=== PATIENT | female | born 1935 | race Caucasian/White ===

== ENCOUNTER 2016-08-15 03:43 | Emergency (ER) | payer BC, MEDICARE ==
[~2016-08-15] VITALS: Ht 152.4 cm; Wt 85.0 kg
[2016-08-15 03:47] VITALS: BP 226/98; PULSE 93; RESP 18; TEMP 98; O2SAT 100
[2016-08-15] MEDS ORDERED: HYDROmorphone HCL PF 1 MG/ML VIAL ONE (03:49)
[2016-08-15] MEDS ORDERED: ceFAZolin 2 GM PREMIX 50 ML ONE (03:51)
[2016-08-15] MEDS ORDERED: GENTAMICIN 80 MG PREMIX 100 ML ONE (03:51)
[2016-08-15 03:55] VITALS: BP 191/86; PULSE 93; RESP 18; O2SAT 98
[2016-08-15] MEDS ORDERED: HYDROmorphone HCL PF 1 MG/ML VIAL IV PUSH ONE (04:00)
[2016-08-15] MEDS ORDERED: SODIUM CHLORID 0.9% 500 ML INJ 500 ML IV ONE (04:00)
[2016-08-15] MEDS ORDERED: GENTAMICIN 80 MG PREMIX 100 ML IV ONE (04:00)
[2016-08-15] MEDS ORDERED: ceFAZolin 2 GM PREMIX 50 ML IV ONE (04:00)
[2016-08-15] MEDS ORDERED: MIRA50TA PO (04:04)
[2016-08-15] MEDS ORDERED: XARE10TA PO (04:04)
[2016-08-15] MEDS ORDERED: BACT800T5 PO (04:04)
[2016-08-15] MEDS ORDERED: IRBE300T13 PO (04:04)
[2016-08-15] MEDS ORDERED: HYDR-3583 PO (04:04)
[2016-08-15] MEDS ORDERED: ATOR10TA15 PO (04:04)
[2016-08-15] MEDS ORDERED: ADVA250A INH (04:04)
[2016-08-15] MEDS ORDERED: HYDR-3535 PO (04:04)
[2016-08-15] MEDS ORDERED: MULT-231 (04:04)
[2016-08-15] MEDS ORDERED: NITR1SUB3 SL (04:04)
[2016-08-15] MEDS ORDERED: CELE1CAP8 PO (04:04)
[2016-08-15] MEDS ORDERED: SERT25TA83 PO (04:04)
[2016-08-15] MEDS ORDERED: CALTCHW5 PO (04:04)
[2016-08-15] MEDS ORDERED: FEXO1TAB97 PO (04:04)
[2016-08-15] MEDS ORDERED: FLUT1INH INH (04:04)
[2016-08-15] MEDS ORDERED: DOXY1CAP74 PO ×2 (04:04)
[2016-08-15 04:13] LABS: AUTOMATED NEUTROPHIL # 5.1 TH/MM3 (1.8-7.7); BASOPHIL # 0.1 TH/MM3 (0-0.2); BASOPHIL % 0.6 % (0.0-2.0); EOSINOPHIL # 0.8 TH/MM3 (0-0.4); EOSINOPHIL % 7.3 % (0.0-4.0); HEMATOCRIT 34.1 % (35.0-46.0); HEMO FLAGS DIFF FINAL; LYMPH % 33.5 % (9.0-44.0); LYMPHOCYTE # 3.5 TH/MM3 (1.0-4.8); MEAN CELL VOLUME 82.2 FL (80.0-100.0); MEAN CORPUSCULAR HGB CONC 31.6 % (32.0-36.0); MONO % 9.8 % (0.0-8.0); NEUT % 48.8 % (16.0-70.0); PLATELET COUNT 290 TH/MM3 (150-450); RED BLOOD COUNT 4.16 MIL/MM3 (4.00-5.30); RED CELL DISTRIBUTION WIDTH 15.1 % (11.6-17.2); WHITE BLOOD COUNT 10.4 TH/MM3 (4.0-11.0)
--- NOTE | 2016-08-15 04:26 | PD ---
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 She had an elective right TKA done with Dr. Sanchez at [facility] on July 16. She states a couple weeks ago she felt a pop. She was seen by Dr. Sanchez a couple days ago and said that everything was healing well. Tonight she felt a pop in her knee again, and collapse to the ground. She called the ambulance who noted complete dehiscence of her right knee wound with exposed hardware. History Past Medical History Narrative Medical Sleep apnea COPD Fibromyalgia Borderline diabetes Hypertension Tetanus Vaccination: Unknown Influenza Vaccination: Yes Social History Alcohol Use: Yes (OCCASSIONALLY) Tobacco Use: No Allergies-Medications (Allergen,Severity, Reaction): Coded Allergies: Dilantin (Verified Allergy, Severe, 08/15/16) Morphine (Verified Allergy, Unknown, 08/15/16) Reported Meds & Prescriptions Reported Meds & Active Scripts Active Reported Doxycycline 40 Mg Cap 40 Mg PO BID Doxycycline 40 Mg Cap 40 Mg PO DAILY Women Multivit W-Biotin Gummy (Multivit-Min/Folic Acid/Biotin) 1 Each Tab.chew Nitroglycerin SL (Nitroglycerin) 0.4 Mg Subl 0.4 Mg SL DIRECTED PRN ONE TABLET UNDER THE TONGUE NEEDED FOR CHEST PAIN, MAY REPEAT EVERY FIVE MINUTES FOR A TOTAL OF 3 DOSES OR CALL 911 IF NO RELIEF Hydrocodone-Acetaminophen 10-325 mg Tab 1 Tab PO Q4H PRN Lortab (Hydrocodone-Acetaminophen) 10-325 Mg Tab 1 Tab PO Q4H PRN Citlalli-D 24 Hour Allergy (Fexofenadine-Pseudoephedrine ER 24 HR) 180-240 Judy 1 Tab PO DAILY Caltrate 600+D Chew (Calcium Carbonate-Vitamin D Chew) 600-400 Mg-Unit Chew 1 Tab PO BID Myrbetriq (Mirabegron) 50 Mg Tab 50 Mg PO DAILY Xarelto (Rivaroxaban) 10 Mg Tab 10 Mg PO SUMOTU Celecoxib 200 Mg Cap 200 Mg PO BID Atorvastatin (Atorvastatin Calcium) 10 Mg Tab 10 Mg PO HS Irbesartan-Hydrochlorothiazide 300-12.5 Mg Tab 1 Tab PO DAILY Sertraline (Sertraline HCl) 25 Mg Tab 25 Mg PO BID Bactrim DS (Sulfamethoxazole-Trimethoprim) 800-160 Mg Tab 1 Tab PO BID Breo Ellipta Inh (Fluticasone/Vilanterol) 100-25 Mcg/Act Inh 1 Puff INH BID Use daily at the same time. Advair Diskus Inh (Fluticasone-Salmeterol Inh) 250-50 Mcg/Blist Aer 1 Puff INH DAILY Rinse mouth after use. Review of Systems Except as stated in HPI: all other systems reviewed are Neg Physical Exam Narrative GENERAL: Well-appearing 80 year-old woman, no acute distress. SKIN: Focused skin assessment warm/dry. HEAD: Atraumatic. Normocephalic. NECK: Trachea midline. No JVD. CARDIOVASCULAR: Regular rate and rhythm. No murmur appreciated. RESPIRATORY: No accessory muscle use. Clear to auscultation. Breath sounds equal bilaterally. GASTROINTESTINAL: Abdomen soft, non-tender, nondistended. Hepatic and splenic margins not palpable. MUSCULOSKELETAL: Right leg is held with the knee flexed. The right knee shows complete dehiscence of her previous surgical wound with obvious exposed hardware , all 3 components, with minimal bleeding. NEUROLOGICAL: Awake and alert. No obvious cranial nerve deficits. Motor grossly within normal limits. Normal speech. PSYCHIATRIC: Appropriate mood and affect; insight and judgment normal. Data Data Last Documented VS Vital Signs Date Time Temp Pulse Resp B/P Pulse Ox O2 Delivery O2 Flow Rate FiO2 08/15/16 03:55 93 18 191/86 98 Room Air 08/15/16 03:47 98.0 Orders Hydromorphone Pf Inj (Dilaudid Pf Inj) (08/15/16 03:49) Cefazolin 2 Gm Premix (Ancef 2 Gm Premix (08/15/16 03:51) Gentamicin 80 Mg Premix (Gentamicin 80 M (08/15/16 03:51) Cefazolin 2 Gm Premix (Ancef 2 Gm Premix (08/15/16 04:00) Gentamicin 80 Mg Premix (Gentamicin 80 M (08/15/16 04:00) Hydromorphone Pf Inj (Dilaudid Pf Inj) (08/15/16 04:00) Complete Blood Count With Diff (08/15/16 03:52) Comprehensive Metabolic Panel (08/15/16 03:52) Sodium Chlorid 0.9% 500 Ml Inj (Ns 500 M (08/15/16 04:00) Knee, Ltd (1 Or 2vws) (08/15/16 ) Labs Laboratory Tests Test 08/15/16 04:00 White Blood Count 10.4 TH/MM3 Red Blood Count 4.16 MIL/MM3 Hemoglobin 10.8 GM/DL Hematocrit 34.1 % Mean Corpuscular Volume 82.2 FL Mean Corpuscular Hemoglobin 26.0 PG Mean Corpuscular Hemoglobin 31.6 % Concent Red Cell Distribution Width 15.1 % Platelet Count 290 TH/MM3 Mean Platelet Volume 9.1 FL Neutrophils (%) (Auto) 48.8 % Lymphocytes (%) (Auto) 33.5 % Monocytes (%) (Auto) 9.8 % Eosinophils (%) (Auto) 7.3 % Basophils (%) (Auto) 0.6 % Neutrophils # (Auto) 5.1 TH/MM3 Lymphocytes # (Auto) 3.5 TH/MM3 Monocytes # (Auto) 1.0 TH/MM3 Eosinophils # (Auto) 0.8 TH/MM3 Basophils # (Auto) 0.1 TH/MM3 CBC Comment DIFF FINAL Differential Comment Sodium Level 140 MEQ/L Potassium Level 3.9 MEQ/L Chloride Level 103 MEQ/L Carbon Dioxide Level 30.3 MEQ/L Anion Gap 7 MEQ/L Blood Urea Nitrogen 17 MG/DL Creatinine 0.71 MG/DL Estimat Glomerular Filtration 79 ML/MIN Rate Random Glucose 101 MG/DL Calcium Level 8.7 MG/DL Total Bilirubin 0.2 MG/DL Aspartate Amino Transf 14 U/L (AST/SGOT) Alanine Aminotransferase 15 U/L (ALT/SGPT) Alkaline Phosphatase 72 U/L Total Protein 6.2 GM/DL Albumin 3.1 GM/DL [facility] Medical Decision Making Medical Screen Exam Complete: Yes Emergency Medical Condition: Yes Interpretation(s) LABS: CBC remarkable for mild anemia. CMP is unremarkable. Differential Diagnosis Wound dehiscence, exposed hardware, infection, trauma, other Narrative Course Medical decision making 80 year-old woman presents emergency Department with what appears a spontaneous dehiscence of her wound. She may have had a pop and then a fall and then dehiscence. At times entirely clear. The case joint and hardware is completely open at this point. Sterile dressing was reapplied. She'll be given IV antibiotics. Simultaneously called our orthopedic surgeon on-call, and Dr. Sanchez. Orthopedic contract coordinator recommends transfer for evaluation by her initial surgeon. We called the transfer center in [facility] at [phone], and awaiting a callback for transfer. She was given pain medicine, IV fluids. FINAL: Patient with dehiscence of surgical wound. Spoke with transfer Center for to [facility]. Dr. Sanchez the discussed with Dr. Sanchez, agreeable to transfer. Hospitalist Dr. Malik Lopez has accepted the patient. Patient was assigned room 706, which is clean them ready, we'll call and give report, sent via [facility]. Diagnosis Primary Impression: Dehiscence of surgical wound Disposition: 70 TRANSFER TO OTHER FACILITY Luke Beth MD Aug 15, 2016 04:26
[2016-08-15 04:37] LABS: ALT (GPT) 15 U/L (10-53); ANION GAP 7 MEQ/L (5-15); AST (GOT) 14 U/L (15-37); BICARBONATE 30.3 MEQ/L (21.0-32.0); BLOOD UREA NITROGEN 17 MG/DL (7-18); CHLORIDE 103 MEQ/L (98-107); GLOMERULAR FILTRATION RATE 79 ML/MIN (>89); POTASSIUM 3.9 MEQ/L (3.5-5.1); SODIUM (NA) 140 MEQ/L (136-145)
[2016-08-15 04:38] LABS: ALKALINE PHOSPHATASE 72 U/L (45-117); TOTAL BILIRUBIN ADULT 0.2 MG/DL (0.2-1.0)
--- NOTE | 2016-08-15 05:03 | RADRPT ---
EXAM DATE/TIME: 08/15/2016 03:54 [facility] COMPARISON: No previous studies available for comparison. EXTERNAL COMPARISON : [facility] INDICATIONS : Right knee pain. Patient states she heard a noise and her incision site split open. MEDICAL HISTORY : None. SURGICAL HISTORY : Total knee replacement, left. Total knee replacement, right. ENCOUNTER: Initial ACUITY: 1 day PAIN SCORE: 7/10 LOCATION: Right knee. FINDINGS: Total knee arthroplasty is in place. The femoral, tibial, and patellar components appear intact. Th ere are no signs of loosening or fracture. There is an approximate 2.6 cm loose body versus hypertrop hic change in the suprapatellar bursa. There are gas bubbles within the joint space most likely posts urgical change. CONCLUSION: Intact total knee arthroplasty for technique. Emilee Butler MD on August 15, 2016 at 4:59 Board Certified Radiologist. This report was verified electronically.
[2016-08-15 05:10] VITALS: BP 185/79; PULSE 92; RESP 16; O2SAT 98
--- NOTE | 2016-08-15 17:42 | EKG ---
Date Performed: 08/15/2016 Time Performed: 03:56:20 PTAGE: 80 years EKG: Sinus rhythm Consider myocardial infarction-age indeterminate. ABNORMAL ECG NO PREVIOUS TRACING DOCTOR: Donny Silva Interpretating Date/Time 08/15/2016 17:40:21
== END 2016-08-15 06:54 | disposition short-term general hospital (02) ==
LOC: NEPE 03:43
DX: T81.31XA Disruption of external operation (surgical) wound, not elsewhere classified, initial encounter (principal); R94.31 Abnormal electrocardiogram [ECG] [EKG]; I10 Essential (primary) hypertension; R73.03 Prediabetes; G47.30 Sleep apnea, unspecified; Z87.39 Personal history of other diseases of the musculoskeletal system and connective tissue; Z87.09 Personal history of other diseases of the respiratory system; W19.XXXA Unspecified fall, initial encounter
CPT/HCPCS: 73560; 80053; 85025; 93005; 96374; 96375; 99285; J1170; J1580; J7040; J0690